=== PATIENT | male | born 1945 | race Caucasian/White ===

== ENCOUNTER → 2017-06-09 | Outpatient (CLI) | payer OTHER, MEDICARE | LOC: BHFA 13:00 | PROVIDERS: ATTEND Internal Medicine Cardiovascular Disease | DX: I48.91 Unspecified atrial fibrillation (principal); I48.92 Unspecified atrial flutter; I34.0 Nonrheumatic mitral (valve) insufficiency ==

== ENCOUNTER 2017-09-09 09:55 | Emergency (ER) | payer OTHER, MEDICARE ==
--- NOTE | 2017-09-09 10:04 | EDPHY ---
H & P Time Seen by Provider: 09/09/17 10:00 HPI/ROS: CHIEF COMPLAINT: Laceration HISTORY OF PRESENT ILLNESS: Patient is a 72-year-old man who comes to the emergency department complaining of laceration to his left cheek. He states that he opened his car door this morning and a bee came out which caused him to jump and hit his face on the car door. He denies loss of consciousness. He denies eye injury or vision difficulties. He denies headache or other injuries. REVIEW OF SYSTEMS: Constitutional: denies: chills, fever, recent illness, recent injury EENTM: denies: blurred vision, double vision, nose congestion Respiratory: denies: cough, shortness of breath Cardiac: denies: chest pain, irregular heart rate, lightheadedness, palpitations Gastrointestinal/Abdominal: denies: abdominal pain, diarrhea, nausea, vomiting, blood streaked stools Genitourinary: denies: dysuria, frequency, hematuria, pain Musculoskeletal: denies: joint pain, muscle pain Skin: See HPI Neurological: denies: headache, numbness, paresthesia, tingling, dizziness, weakness Hematologic/Lymphatic: denies: blood clots, easy bleeding, easy bruising Immunologic/allergic: denies: HIV/AIDS, transplant EXAM: GENERAL: Well-appearing, well-nourished and in no acute distress. HEAD: Atraumatic, normocephalic. EYES: Pupils equal round and reactive to light, extraocular movements intact, sclera anicteric, conjunctiva are normal. ENT: TMs normal, nares patent, oropharynx clear without exudates. Moist mucous membranes. NECK: Normal range of motion, supple without lymphadenopathy or JVD. LUNGS: Breath sounds clear to auscultation bilaterally and equal. No wheezes rales or rhonchi. HEART: Regular rate and rhythm without murmurs, rubs or gallops. ABDOMEN: Soft, nontender, normoactive bowel sounds. No guarding, no rebound. No masses appreciated. BACK: No CVA tenderness, no spinal tenderness, step-offs or deformities EXTREMITIES: Normal range of motion, no pitting or edema. No clubbing or cyanosis. NEUROLOGICAL: Cranial nerves II through XII grossly intact. Normal speech, normal gait. 5/5 strength, normal movement in all extremities, normal sensation PSYCH: Normal mood, normal affect. SKIN: Vertical 2 cm abrasion/laceration below left eye, does not involve eyelid. Source: Patient Exam Limitations: No limitations - Personal History Current Tetanus/Diphtheria Vaccine: Yes - Medical/Surgical History Hx Asthma: No Hx Chronic Respiratory Disease: No Hx Diabetes: No Hx Cardiac Disease: No Hx Renal Disease: No Hx Cirrhosis: No Hx Alcoholism: No - Family History Significant Family History: No pertinent family hx - Social History Smoking Status: Never smoked Alcohol Use: None Constitutional: Initial Vital Signs Temperature (C) 36.8 C 09/09/17 10:00 Heart Rate 64 09/09/17 10:00 Respiratory Rate 16 09/09/17 10:00 Blood Pressure 144/77 H 09/09/17 10:00 O2 Sat (%) 95 09/09/17 10:00 O2 Delivery Mode Room Air Allergies/Adverse Reactions: No Allergies [NKDA] Allergy (Unknown, Verified 09/09/17 09:59) Unknown Home Medications: Medication Instructions Recorded Allopurinol 09/09/17 Flecainide Acetate 09/09/17 Multivitamins 09/09/17 Medical Decision Making ED Course/Re-evaluation: Patient has a very minor abrasion signs laceration. We will clean and dress the Steri-Strips. Patient is happy with this plan and declines further workup or testing at this time. Differential Diagnosis: Partial list of the Differential diagnosis considered include but were not limited to; laceration, abrasion, facial fracture, eye injury and although unlikely based on the history and physical exam, I also considered head injury, concussion, neck injury. I discussed these differential diagnoses and the plan with the patient as well as the usual and expected course. The patient understands that the diagnosis is provisional and that in medicine we are not always correct and that further workup is often warranted. Usual and customary warnings were given. All of the patient's questions were answered. The patient was instructed to return to the emergency department should the symptoms at all worsen or return, otherwise to followup with the physician as we discussed. - Data Points Medications Given: Discontinued Medications Tetracaine/Epinephrine/Lidocaine (Let Gel Topical) 1 ea TP EDNOW ONE Stop: 09/09/17 10:10 Last Admin: 09/09/17 10:12 Dose: 1 ea Departure - Departure Disposition: Home, Routine, Self-Care Clinical Impression: Laceration Condition: Fair Instructions: Laceration (ED) Referrals: Gilmer Arceo DO [Primary Care Provider] - As per Instructions
[2017-09-09 10:08] VITALS: BP 144/77
[2017-09-09] MEDS ORDERED: LET GEL TOPICAL 1 EA SYR TP ONE (10:09)
== END 2017-09-09 10:31 | disposition home or self-care (01) ==
LOC: CED 09:55
DX: S01.412A Laceration without foreign body of left cheek and temporomandibular area, initial encounter (principal); W22.8XXA Striking against or struck by other objects, initial encounter; Y99.8 Other external cause status; Y93.39 Activity, other involving climbing, rappelling and jumping off